=== PATIENT | male | born 1970 | race Caucasian/White ===

== ENCOUNTER 2020-12-11 09:16 | Outpatient (CLI) | payer MEDICAID, SELFPAY ==
--- NOTE | 2020-12-11 09:46 | DI.RAD_ITS ---
EXAM: XR KNEE LT 3V AP,LAT,NABIL CLINICAL HISTORY: KNEE JOINT PAIN, LT M25.562. TECHNIQUE: 2D digital imaging was performed. COMPARISON: No exams were available for comparison FINDINGS: BONES: No acute fracture is present. No bony destructive lesion is seen. JOINTS: The knee is normally aligned. No joint effusion is seen. SOFT TISSUE: Normal. IMPRESSION: Normal radiographs of the left knee. DATA REPOSITORY: RADIATION DOSE DELIVERED:
== END 2020-12-11 09:36 ==
PROVIDERS: PCP Physician Assistant; Visit Provider Physician Assistant
DX: M25.562 Pain in left knee (principal)
CPT/HCPCS: 73562

== ENCOUNTER 2020-12-11 11:56 | Outpatient (REF) | payer MEDICAID, SELFPAY ==
[2020-12-11 15:26] LABS: Anion Gap 11.8 mmol/L (3-11); BUN 24 mg/dL (7-18); CO2 27.2 mmol/L (21.0-32.0); Calcium 8.8 mg/dL (8.5-10.1); Calculated LDL 126 mg/dL (<100); Chloride 104 mmol/L (98-107); Cholesterol 189 mg/dL (<200); Glucose 95 mg/dL (74-106); HDL Cholesterol 45 mg/dL (40-60); Potassium 4.8 mmol/L (3.5-5.1); Sodium 143 mmol/L (136-145); Triglyceride 91 mg/dL (<150)
[2020-12-11 21:26] LABS: PSA, Screening 0.9 ng/mL (0.0-3.5)
== END 2020-12-11 11:57 | disposition home or self-care (01) ==
LOC: NCHCN 11:56
PROVIDERS: PCP Physician Assistant; Visit Provider Physician Assistant
DX: Z13.228 Encounter for screening for other metabolic disorders (principal); Z13.220 Encounter for screening for lipoid disorders; Z12.5 Encounter for screening for malignant neoplasm of prostate; Z00.00 Encounter for general adult medical examination without abnormal findings
CPT/HCPCS: 80048; 80061; 84153

== ENCOUNTER 2021-04-22 12:04 | Day surgery (SDC) | payer MEDICAID, SELFPAY ==
--- NOTE | 2021-04-22 07:05 | W.COLOREPORT ---
Date of service: 04/22/21 Time of Service: 13:49 Colonoscopy Report Date of procedure: 04/22/21 Pre-op diagnosis general: Colon Cancer Screening Post-op diagnosis procedure note: other (polyps) Procedure: Colonoscopy with polypectomy Surgeon: Candie Arroyo Anesthesia Type: MAC (ASA 2/ Deborah Rodriguez, SANTA) Estimated blood loss (mL): 3 Pathology: other (rectal polyps x3) Complications: None Disposition: same day Indications: The patient is here for Colonoscopy pre-op.He has no family history of colon cancer. He has not had any bowel habit changes. -Discussed colonoscopy bowel prep as well as the procedure. Discussed possible complications of the procedure to include bleeding, pain, perforation, missed small lesion/polyp, sore throat, aspiration and adverse reaction to the medications. Questions were answered to patient?s satisfaction. No guarantees were implied or given. Prep: Miralax/Dulcolax Procedure Start Time: 13:49 Procedure End Time: 14:12 Retraction Time: 15 minutes Findings: 3 polyps Procedure Description: After informed consent was obtained the patient was taken to the procedure room and placed in a left decubitous position. Monitors were applied and a time out was done. The patients name, date of , procedure, allergies to medications and metal in their body was reviewed. The patient was then sedated. Once sedated and comfortable a rectal exam was done. External exam was normal. Internal exam revealed a normal sphincter tone and no palpable masses. The prostate felt smooth. The scope was then introduced and retro-flexed. No internal hemorrhoids, polyps or masses were identified on retro-flexion. The scope was then advanced to the cecum without difficulty. The ileocecal vlave and appendiceal orifice were identified. The prep was adequate. The scope was then slowly retracted over 15 minutes back into the rectum. Polyps were removed with cold forceps in the rectum x3. There was no diverticulosis noted. The scope was removed and the patient was woken up and taken back to Same day surgery in stable condition. The patient tolerated the procedure well and there were no immediate complications. Follow up: The patient should follow up in 5 years unless they develop changes in bowel habits or other new gastrointestinal complaints.
--- NOTE | 2021-04-22 07:06 | W.PM.DSUDISC ---
Discharge Plan Disposition Patient Disposition: HOME Condition: Good Discharge Details Reason For Visit: Colon Cancer Screening Attending Provider: Candie Arroyo Primary Care Provider: Lloyd Jimenez Home Meds and New Rx's Prescriptions: Continued lansoprazole [Prevacid] 15 mg capsule,delayed release(DR/EC) 15 mg PO DAILY RF: 0 Discontinued bisacodyl [Dulcolax (bisacodyl)] 5 mg tablet,delayed release (DR/EC) 5 mg PO ONCE Qty: 4 RF: 0 polyethylene glycol 3350 17 gram/dose powder 238 g PO ONCE Qty: 238 RF: 0 Discharge Instructions Additional Instructions: Findings: 3 polyps Follow up: 5 years Please call if you develop: fevers >101.5 Nausea or Vomiting Abdominal pain that is not transient Rectal bleeding that is more then a tbsp A hard abdomen and inability to pass gas DAY SURGERY UNIT POST ENDOSCOPY INSTRUCTIONS Instructions for everyone who is given Anesthesia: For your safety, please do the following for the next 24 Hours: a. Do not drive or operate dangerous equipment b. Do not drink alcohol beverages or use any recreational drugs for the first 24 hours or while taking pain medications. The medications in your body may have a reaction that can be dangerous. c. Do not make any important decisions or sign any important papers 1. Generally there are no restrictions on your activity after a day or so has gone by, but you may feel a bit fatigued for a few days. 2. After you arrive home you may have a light meal and return to a normal diet as you can tolerate it without feeling sick to your stomach. 3. After surgery, you may feel pain or discomfort. This should be only transient, but if it persists please contact your doctor. 4. If there are any questions regarding the findings of your procedure, please feel free to contact your doctor. 6. If you are unable to contact your doctor with a problem, contact the hospital at [phone]. 7. Continue all your regular medications unless directed otherwise. I understand the above instructions and have no questions. Signature of Patient or Responsible Adult Escort Date/Time Name of Responsible Adult Escort Signature of Nurse Date/Time Activity:: Activity as Tolerated Diet:: As Tolerated Discharge Orders Discharge Orders: Discharge Order (Routine); Ordered 04/22/21 Ordered By: Candie Arroyo
[2021-04-22 12:21] VITALS: BP 132/88; PULSE 74; RESP 16; TEMP 36.4; O2SAT 99
[2021-04-22] MEDS: Lactated Ringers 1,000 ML 80 ML IV (12:35)
--- NOTE | 2021-04-22 12:51 | ANES.PREOP_ITS ---
General Info Date of Service Date Performed: 04/22/21 Height: 5 ft 10.08 in Weight: 90.4 kg Body Mass Index (BMI): 28.5 Surgical Procedure: Operation Date: 04/22/21 13:05 Proposed Procedures Side Surgeon p Colonoscopy Candie Arroyo MD Meds Allergies and Home Medications Allergies Allergy/AdvReac Type Severity Reaction Status Date / Time No Known Allergies Allergy Verified 04/22/21 12:20 Home Medication Medication Instructions Recorded lansoprazole 15 mg capsule,delayed 15 mg PO DAILY 12/12/20 release bisacodyl 5 mg tablet,delayed 5 mg PO ONCE #4 tab 04/05/21 release polyethylene glycol 3350 17 238 g PO ONCE #238 g 04/05/21 gram/dose oral powder Current Visit Medications: Current Medications Generic Name Dose Route Start Last Admin Trade Name Freq PRN Reason Stop Dose Admin Hyoscyamine Sulfate 0.125 mg 04/22/21 07:06 Hyoscyamine 0.125 Mg Sl/Oral/Chew SL DIRECTED PRN Ringer's Solution 1,000 mls @ 80 mls/hr 04/22/21 06:00 04/22/21 12:35 IV 05/19/21 23:59 80 mls/hr INFUSION GERARDO Administration IV Miscellaneous Supplies 1 each 04/22/21 06:00 Iv Access IV 05/19/21 23:59 DIRECTED GERARDO Ondansetron HCl 4 mg 04/22/21 07:06 Ondansetron 4 Mg/2 Ml Vial IVP Q4H PRN PRN Nausea / Vomiting Sodium Chloride 0 ml 04/22/21 06:00 Normal Saline Flush 10 Ml Syr IV 05/19/21 23:59 PRN PRN Sodium Chloride 0 ml 04/22/21 06:00 Normal Saline 10 Ml Vial IJ 05/19/21 23:59 DIRECTED PRN Sterile Water 0 ml 04/22/21 06:00 Water,Injection,Sterile 10 Ml Vial IJ 05/19/21 23:59 DIRECTED PRN PFSH Active Problems Active Problems: Problem Status Onset Code Screening for colon cancer Z12.11 Joint pain M25.50 GERD (gastroesophageal reflux disease) K21.9 Medical History Medical History Back pain GERD (gastroesophageal reflux disease) Knee pain, left Surgical History Surgical History History of appendectomy Tobacco Smoking/Tobacco Use Status: Never Alcohol Alcohol Intake: current Alcohol intake frequency: holidays/special occasions on ly Substance Use Substance use: Daily Substance use type: marijuana Details: Last use of marijuana was last night per patient. Vital Signs and Lab Results Vital Signs Most Recent Vital Signs in EMR: Most Recent Vital Signs Temp Pulse Resp BP Pulse Ox 36.4 C L 74 16 132/88 99 04/22/21 12:21 04/22/21 12:21 04/22/21 12:21 04/22/21 12:21 04/22/21 12:21 Lab Results Blood Type / Crossmatch: No Data to Display Complete Blood Count: No Data to Display Complete Metabolic Panel: No Data to Display Liver Function Panel: No Data to Display Coagulation Panel: No Data to Display Cardiac Panel: No Data to Display Arterial Blood Gas: No Data to Display Venous Blood Gas: No Data to Display Pancreas Panel: No Data to Display Thyroid Panel: No Data to Display Infectious Disease: No Data to Display Blood Cultures: No Data to Display Toxicology Panel: No Data to Display Anesthesia Assessment and Plan Anesthesia History Personal History: No History of Anesthesia Complications Family History: No Family History of Anesthesia Complications Exercise Tolerance Exercise Tolerance: Metabolic Equivalents>4 Pertinent Negatives Pertinent Negatives: No Symptoms of GERD (Well-controlled), No Major Cardiovascular Symptoms or Complaints, No Major Pulmonary Symptoms or Complaints and No History of CVA/TIA Cardiac & Pulmonary Exam Cardiac Exam: Normal S1/S2 Heart Sounds Pulmonary Exam: Clear Bilateral Breath Sounds Airway Exam Known Difficult Airway: No Mallampati Class: 2 Mouth Opening: Normal (> 3cm) Thyromental Distance: Greater than 3 cm Neck Range of Motion: Full ROM Neck Circumference: Normal Teeth Condition: Normal Dentition ASA Classification ASA Score: ASA 2 Emergency Case?: No NPO Status NPO Status: NPO Clears >2 hours, Solids >8 hours Anesthesia Plan Resuscitation Status: Full Code Anesthesia Technique: General Anesthesia Airway Planned: Natural Airway Monitors Used: Standard Monitors
[2021-04-22 12:52] VITALS: BMI 28.5
--- NOTE | 2021-04-22 14:09 | BOWEL_PTH ---
PATIENT: Anil Bonner LOC: [facility] U#:[id number] AGE/SX: 50/M ROOM: RE04/22/[address]: Candie Arroyo MD : 1970 BED: DIS: 04/22/2021 SPEC #: [id number] RECD: 04/22/21 17:22 STATUS: JOSELUIS REQ #: [id number] ROSE MARIE: 04/22/21 14:[address]: Candie Arroyo DEPT: Surgical Specimen RECD BY: Danna Darling ENTERED: 04/22/21 17:23 SP TYPE: Bowel OTHR DR: Lloyd Jimenez Tissues: 1 - BIOPSY BOWEL Procedures: GROSS AND MICRO LEVEL 4 Comments: [id number]
[2021-04-22 14:17] VITALS: BP 132/88; PULSE 74; RESP 14; TEMP 36.4; O2SAT 99
--- NOTE | 2021-04-22 14:29 | W.ANESPOSTOP ---
Postoperative Evaluation Date, Time and Location Date Performed: 04/22/21 Time Performed: 14:37 Patient Location: Day Surgery Unit Vital Signs Most Recent Imported Vital Signs: Most Recent Vital Signs Temp Pulse Resp BP Pulse Ox 36.4 C L 74 14 132/88 99 04/22/21 14:17 04/22/21 14:17 04/22/21 14:17 04/22/21 14:17 04/22/21 14:17 Pain Score Most Recent Pain Score: Most Recent Pain Score Pain Level 0 04/22/21 14:17 Assessment Mental Status: Awake (Alert & Oriented to Patient Baseline) Airway and Respiratory Function: Patent airway with normal (patient baseline) respiratory exam Cardiovascular Function: Hemodynamically Stable Hydration Status: Adequately Hydrated Nausea & Vomiting: No Nausea or Vomiting Pain: Pt. Denies Any Pain Peripheral Nerve Block: Patient did not receive a nerve block
[2021-04-22 14:49] VITALS: BP 123/80; PULSE 62; RESP 16; TEMP 36.4; O2SAT 100
== END 2021-04-22 15:00 | disposition home or self-care (01) ==
LOC: SUR 12:05
PROVIDERS: PCP Physician Assistant; Visit Provider Surgery
PROC: 0DJD8ZZ Inspection of Lower Intestinal Tract, Via Natural or Artificial Opening Endoscopic (ICD-10-PCS; CPT 45378; principal; 2021-04-22 13:00)
DX: Z12.11 Encounter for screening for malignant neoplasm of colon (principal); K62.1 Rectal polyp
CPT/HCPCS: 45380; 88305; J2001

== ENCOUNTER 2021-11-29 02:04 | Outpatient (CLI) | payer MEDICAID, SELFPAY ==
--- NOTE | 2021-11-29 13:58 | DI.RAD_ITS ---
Exam(s) XR CHEST 2V PA LATERAL EXAM: XR CHEST 2V PA LATERAL CLINICAL HISTORY: WHEEZING R06.02 LEFT UPPER LUNG FIELD. TECHNIQUE: 2D digital imaging was performed. COMPARISON: No exams were available for comparison FINDINGS: Heart size is normal. The mediastinum is not widened. Lungs are clear. No infiltrates nor pleural effusions. IMPRESSION: No acute pulmonary findings. DATA REPOSITORY: RADIATION DOSE DELIVERED:
== END 2021-11-29 02:24 ==
PROVIDERS: PCP Physician Assistant; Visit Provider Physician Assistant
DX: R06.2 Wheezing (principal)
CPT/HCPCS: 71046

== ENCOUNTER 2022-01-16 14:09 | Outpatient (REF) | payer MEDICAID, SELFPAY ==
--- NOTE | 2022-01-16 13:09 | SKI_PTH ---
PATIENT: Anil Bonner LOC: [facility]#:[id number] AGE/SX: 51/M ROOM: RE01/16/[address]: Lloyd Jimenez : 1970 BED: DIS: 01/16/2022 SPEC #: [id number] RECD: 01/16/22 17:01 STATUS: JOSELUIS SALINAS #: [id number] ROSE MARIE: 01/16/22 13:[address]: Lloyd Jimenez DEPT: Surgical Specimen RECD BY: Danna Darling Tissues: 1 - SKIN BIOPSY(SHAVE/PUNCH) Procedures: SKIN LEVEL 4 Comments: [id number]
== END 2022-01-16 14:10 | disposition home or self-care (01) ==
LOC: NCHCN 14:09
PROVIDERS: PCP Physician Assistant; Visit Provider Physician Assistant
DX: L82.1 Other seborrheic keratosis (principal); D23.5 Other benign neoplasm of skin of trunk
CPT/HCPCS: 88305

== ENCOUNTER 2024-01-12 08:58 | Outpatient (CLI) | payer MEDICAID, SELFPAY ==
[2024-01-12 09:10] LABS: Abs Immature Grans 0.03 10^3/uL (0.0-0.06); Absolute Basophil Count 0.06 10^3/uL (0.0-0.2); Absolute Eosinophil Count 0.16 10^3/uL (0.0-0.7); Absolute Lymphocyte Count 2.01 10^3/uL (1.2-3.4); Absolute Monocyte Count 0.62 10^3/uL (0.1-0.8); Absolute Neutrophil Count 4.97 10^3/uL (1.2-6.7); Basophils % 0.8; HCT 41.1 % (40.0-50.0); HGB 13.8 g/dL (13.5-17.5); Immature Grans % 0.4; Lymphocytes % 25.6; MCH 28.6 pg (27.0-33.0); MCHC 33.6 % (32.0-36.0); MCV 85 fL (80-95); MPV 10.9 fL (8.0-11.0); Monocytes % 7.9; Neutrophils % 63.3; Platelet Count 198 10^3/uL (130-400); RBC 4.83 10^6/uL (4.36-5.78); RDW-SD 40.5 fL; WBC 7.85 10^3/uL (4.4-10.8)
[2024-01-12 10:12] LABS: ALT 31 U/L (16-63); AST 18 U/L (15-37); Albumin 3.9 g/dL (3.4-5.0); Alkaline Phosphatase 56 U/L (46-116); BUN 16 mg/dL (7-18); Bilirubin, Total 0.4 mg/dL (0.2-1.0); CREATININE 1.1 mg/dL (0.70-1.30); Calcium 9.1 mg/dL (8.5-10.1); Calculated LDL 121 mg/dL (<100); Chloride 107 mmol/L (98-107); Cholesterol 185 mg/dL (<200); Estimated GFR 79.77 (mL/min/1.73m2); Glucose 100 mg/dL (74-106); HDL Cholesterol 55 mg/dL (40-60); Potassium 4.8 mmol/L (3.5-5.1); Sodium 146 mmol/L (136-145); Triglyceride 48 mg/dL (<150)
[2024-01-12 17:57] LABS: PSA, Screening 0.7 ng/mL (<=3.5)
== END 2024-01-12 08:59 | disposition home or self-care (01) ==
LOC: LBO 08:58
PROVIDERS: PCP Physician Assistant; Visit Provider Physician Assistant
DX: Z00.00 Encounter for general adult medical examination without abnormal findings (principal)
CPT/HCPCS: 36415; 80053; 80061; 84153; 85025

== ENCOUNTER 2024-05-11 00:53 | Outpatient (CLI) | payer MEDICAID, SELFPAY ==
--- NOTE | 2024-05-11 10:00 | DI.MRI_ITS ---
Exam(s) MR LOWER JOINT LT WO EXAM: MR LOWER JOINT LT WO CLINICAL HISTORY: M25.562 Pain left knee, chronic, swelling, giving out. TECHNIQUE: Multiplanar multisequence MRI was performed. COMPARISON: CR XR KNEE LT 3V AP,LAT,NABIL from 12/11/2020 FINDINGS: BONES: There is no fracture or contusion pattern. JOINTS: There is hyperintense signal seen in the articular cartilage overlying the patella. There is a small amount of fluid in the joint space. TENDONS: Extensor mechanism: Unremarkable. Medial retinaculum: Unremarkable. Lateral retinaculum: Unremarkable. Popliteus: Unremarkable. MUSCLES: Unremarkable. MENISCI: There is a complex tear of the body of the medial meniscus. There also is seen a tear of th e posterior horn of the medial meniscus. The lateral meniscus is unremarkable. SOFT TISSUES: There is a tiny popliteal cyst. LIGAMENTS: Anterior Cruciate: Unremarkable. Posterior Cruciate: Unremarkable. Medial Collateral:Unremarkable. Lateral Collateral: Unremarkable. OTHER: IMPRESSION: 1. Medial meniscal tear involving the body and posterior horn. 2. No evidence of a ligament tear. 3. Chondromalacia of the patella. 4. Small amount of fluid in the joint space. DATA REPOSITORY:
== END 2024-05-11 01:13 ==
LOC: DI 00:53
PROVIDERS: PCP Physician Assistant; Visit Provider Physician Assistant
DX: M23.222 Derangement of posterior horn of medial meniscus due to old tear or injury, left knee (principal)
CPT/HCPCS: 73721

== ENCOUNTER 2024-06-01 15:14 | Outpatient (CLI) | payer MEDICAID, SELFPAY ==
--- NOTE | 2024-06-01 13:15 | DI.RAD_ITS ---
Exam(s) XR KNEE LT 2V AP,LAT EXAM: XR KNEE LT 2V AP,LAT CLINICAL HISTORY: evaluate left knee. TECHNIQUE: 2D digital imaging was performed. Three views. COMPARISON: CR XR KNEE LT 3V AP,LAT,NABIL from 12/11/2020 FINDINGS: BONES: No acute fracture is present. No bony destructive lesion is seen. Mild spurring at tibial t ubercle. Mild spurring at articular aspect of patella. JOINTS: The knee is normally aligned. Small to moderate-sized joint effusion is seen. SOFT TISSUE: Normal. IMPRESSION: Mild degenerative changes and joint effusion. DATA REPOSITORY: RADIATION DOSE DELIVERED:
== END 2024-06-01 15:15 | disposition home or self-care (01) ==
LOC: DIORS 15:14
PROVIDERS: PCP Physician Assistant; Visit Provider Student in an Organized Health Care Education/Training Program
DX: M17.12 Unilateral primary osteoarthritis, left knee (principal)
CPT/HCPCS: 73560

== ENCOUNTER 2024-06-24 10:24 | Day surgery (SDC) | payer MEDICAID, SELFPAY ==
[2024-06-24] VITALS (26 sets, daily range): BP systolic 100–140; BP diastolic 68–95; PULSE 50–189; RESP 12–23; TEMP 36–36.3; O2SAT 94–100; BMI 26.3
--- NOTE | 2024-06-24 07:26 | W.PM.OP ---
Date of service: 06/24/24 Time of Service: 15:00 Operative Note Operative Note DATE OF PROCEDURE: 06/24/24 PRE-OP DIAGNOSIS: Left knee 1. Medial meniscus tear 2. Chondromalacia POST-OP DIAGNOSIS: same Left knee 1. Medial meniscus tear 2. Chondromalacia 3. Lateral meniscus tear 4. Loose bodies PROCEDURE: Left knee 1. Partial medial & lateral meniscectomy, CPT #85584 2. Extensive debridement, CPT #55328: Resection medial gutter plica, removal of suprapatellar loose bodies, debridement intercondylar osteophytes, and debridement anterior synovitis 3. Chondroplasty, CPT #33857: Trochlea and patella SURGEON: Alexander Bravo HELICOPTER OFFICER: None None ANESTHESIA TYPE: Local By Surgeon and General LMA/ETT Refer to Anesthesia Record ESTIMATED BLOOD LOSS: 5 PATHOLOGY: none sent TOURNIQUET TIME: 0 Patient was transported to: PACU Patient's condition: stable Indications: Please see complete medical record for details. Findings: Exam under anesthesia: Mild stiffness with a few degrees short of full extension, full extension with downward pressure, no instability Arthroscopic findings: Moderately significant degenerative findings throughout the knee. Moderately significant central trochlear and patellar chondromalacia. Obvious large medial gutter plical band. Multiple small ovoid loose bodies probably cartilaginous. Intact ACL. Early intercondylar marginal osteophytes. Large degenerative medial meniscus tear from the body posterior horn junction extending into the body and posterior horn through the red-white zones. Moderate medial compartment narrowing chondromalacia. Large posterior horn somewhat vertical meniscus tear at about the read to red-white zone. Mild lateral chondromalacia. Procedure Description: In the operating room, general anesthesia was induced. The patient was positioned supine on the operating room table. All bony prominences were well-padded. Preoperative antibiotics were administered. The knee was prepped and draped in the usual sterile fashion. The correct patient, procedure, and side of the procedure were all verified prior to incision. Exam under anesthesia was performed. 10 cc of 0.25% bupivacaine containing epinephrine was infiltrated about the planned anteromedial and anterolateral knee arthroscopy portals. The portals were established and a complete diagnostic arthroscopy was performed with relevant findings detailed above. The mechanical shaver was used to resect a large medial gutter plical band. Suprapatellar space was debrided of synovitis and a few small ovoid cartilaginous loose bodies were removed. The torpedo shaver was then used to debride irregular cartilage margins through the central trochlea and undersurface patella to more stable smooth and appropriate margin. Mechanical shaver was then used to debride anterior synovitis and takedown some early impinging intercondylar osteophytes. Lateral meniscus tear was then probed and unfortunately was full-thickness in a somewhat vertical to horizontal trajectory in the center of the posterior horn to about the capsular peripheral margin. Given the degenerative nature of the knee, no repair was really indicated although meniscectomy then did have to involve the white and red-white zones fairly significantly about the posterior horn tear. Hand biters and torpedo shaver was used to contour the meniscus remnant as best possible while trying to preserve meniscal tissue with the remainder root and body of the lateral meniscus largely okay. Lastly using the combination of hand instruments meniscal biters and power torpedo shaver the medial meniscus tear was thoroughly debrided and contoured to a stable margin taking care to ensure stable root posterior horn and anterior remnants while preserving meniscus as possible although the central part of the tear was mucoid and degenerated requiring debridement towards the red capsular zone. Under direct arthroscopic visualization an 18-gauge needle was passed into the knee from superolateral into the suprapatellar pouch. The knee was copiously irrigated with arthroscopic fluid until there was a clear effluent before being drained of all fluid. The anteromedial and anterolateral portals were closed in 3-0 Monocryl in a buried interrupted fashion. 20 cc of 0.25% bupivacaine with epinephrine containing 4 mg of morphine was infiltrated into the knee through the previously placed needle. Mastisol, Steri-Strips, and 4 x 4 gauze were applied over the incisions. The knee was then wrapped gently with an VELIA comressive bandage. The patient awoke from anesthesia without complication and was transferred to the recovery room in a stable condition.
--- NOTE | 2024-06-24 10:23 | W.PM.DSUDISC ---
Date of service: 06/24/24 Time of Service: 15:00 Discharge Plan Disposition Patient Disposition: Home Condition: Stable Discharge Details Attending Provider: Alexander Bravo Primary Care Provider: Lloyd Jimenez Home Meds and New Rx's Prescriptions: New naproxen 250 mg tablet 250 - 500 mg PO BID PRN (Reason: moderate pain and swelling) Qty: 40 0RF oxycodone 5 mg tablet 5 - 10 mg PO .q4-6h MDD 30 mg PRN (Reason: severe pain) Qty: 18 0RF aspirin 81 mg capsule 81 mg PO DAILY 14 Days Qty: 14 0RF Continued lansoprazole [Prevacid] 15 mg capsule,delayed release(DR/EC) 15 mg PO DAILY Discharge Instructions Additional Instructions: Surgery: Left knee arthroscopy with partial medial & lateral meniscectomy, patellofemoral chondroplasty, medial plica excision, and removal of loose bodies Activity: Weightbearing as tolerated. Advance range of motion as comfort allows. No knee brace or crutches needed as soon as comfortable. Recommend avoiding sports, pivoting, and squatting for 6-8 weeks. A physical therapy prescription will be sent electronically to start in 2 to 3 weeks. Prescriptions: Aspirin 81 mg take 1 daily to prevent a blood clot for 14 days, starting tomorrow Naproxen 250 mg take 1-2 every 12 hours with a meal as needed for moderate pain Oxycodone 5 mg take 1-2 every 4-6 hours as needed for severe pain You may use [id number] Tylenol (acetaminophen) as needed for mild pain. These pain medications may be taken all at once or in different combinations as needed. Also, recommend Colace (docusate) as a stool softener as surgery and pain medicine cause constipation. You may try [id number]-dan-ahfrdle diphenhydramine (Benadryl) 25-50 mg nightly as a sleep aid Dressings: Leave dressing in place for 3 days. May then remove and leave open to air or cover incisions with Band-Aids. Leave the sticky Steri-Strips in place until they fall off or remove them after you shower. May shower after 5 days. Follow-up: 10-[address] Bravo You may take off the leg compression stockings this evening at home. You may also leave them on a few days longer if you have a history of leg swelling or edema. Let us know right away if you develop any redness, drainage, fevers, chest pain, or trouble breathing. Do not drink alcohol or drive for at least 24 hours after anesthesia. Please call the office during business hours with any questions or concerns. Stand Alone Forms: Anesthesia Discharge Inst.Amarjit (DSU) Discharge Orders Discharge Orders: Discharge Order (Routine); Ordered 06/24/24 Ordered By: Wandy Grover DS: Diagnosis Discharge Diagnosis (1) Degenerative tear of left medial meniscus: Status: Acute (2) Chondromalacia of left knee: Status: Acute (3) Tear of lateral meniscus of left knee: Status: Acute (4) Loose body of left knee: Status: Acute
[2024-06-24] MEDS: Lactated Ringers 1,000 ML 30 ML IV (11:08)
--- NOTE | 2024-06-24 11:54 | W.ANESPRE ---
General Info Date of Service Date Performed: 06/24/24 Height: 5 ft 10 in Weight: 83.2 kg Body Mass Index (BMI): 26.3 Surgical Procedure: Operation Date: 06/24/24 12:10 Proposed Procedure Side Surgeon p Knee Arthroscopy Left Alexander Bravo MD Actual Procedure Side Surgeon p Knee Arthroscopy Left Alexander Bravo MD Pre-Op Diagnosis Post-Op Diagnosis (1) Chondromalacia of left knee: (2) Degenerative tear of left medial meniscus: Meds Allergies and Home Medications Allergies Allergy/AdvReac Type Severity Reaction Status Date / Time No Known Allergies Allergy Verified 06/24/24 10:42 Home Medication ?Medication ?Instructions ?Recorded lansoprazole 15 mg capsule,delayed 15 mg PO DAILY 12/12/20 release (Prevacid) Current Visit Medications: Current Medications Generic Name Dose Route Start Last Admin Trade Name Freq PRN Reason Stop Dose Admin Ringer's Solution 1,000 mls @ 30 mls/hr 06/24/24 06:00 06/24/24 11:08 IV 07/23/24 23:59 30 mls/hr INFUSION GERARDO Administration Cefazolin Sodium/Dextrose 2 gm in 50 mls @ 100 mls/hr 06/24/24 06:00 Ancef Duplex IVPB 06/24/24 16:00 PREOP GERARDO Tranexamic Acid/Sodium Chloride 1,000 mg in 100 mls @ 600 mls/hr 06/24/24 06:00 IVPB 06/24/24 16:00 PREOP GERARDO IV Miscellaneous Supplies 1 each 06/24/24 06:00 Iv Access IV 07/23/24 23:59 DIRECTED GERARDO Oxycodone HCl 0 mg 06/24/24 10:23 Oxycodone 5 Mg Tab PO 07/24/24 10:22 Q3H PRN PRN Pain Sodium Chloride 0 ml 06/24/24 06:00 Normal Saline Flush 10 Ml Syr IV 07/23/24 23:59 PRN PRN Sodium Chloride 0 ml 06/24/24 06:00 Normal Saline 10 Ml Vial IJ 07/23/24 23:59 DIRECTED PRN Sterile Water 0 ml 06/24/24 06:00 Water,Injection,Sterile 10 Ml Vial IJ 07/23/24 23:59 DIRECTED PRN PFSH Active Problems Active Problems: Problem Status Onset Code Degenerative tear of left medial meniscus Acute M23.204 Chondromalacia of left knee Acute M94.262 Colon polyp, hyperplastic Acute ~04/2021 K63.5 Screening for colon cancer Acute Z12.11 Joint pain Acute M25.50 GERD (gastroesophageal reflux disease) Chronic K21.9 Medical History Medical History Adjustment disorder GERD (gastroesophageal reflux disease) Knee pain, left Back pain Surgical History Surgical History H/O vasectomy History of colonoscopy (~04/2021) History of appendectomy Tobacco Smoking/Tobacco Use Status: Never Alcohol Alcohol Intake: current Alcohol intake frequency: holidays/special occasions only Substance Use Substance use: Occasionally Substance use type: marijuana Details: last THC 06/23/24 at 2000 Vital Signs and Lab Results Vital Signs Most Recent Vital Signs in EMR: Most Recent Vital Signs Temp Pulse Resp BP Pulse Ox 36.2 C L 62 16 120/74 100 06/24/24 10:35 06/24/24 10:35 06/24/24 10:35 06/24/24 10:35 06/24/24 10:35 Lab Results Blood Type / Crossmatch: No Data to Display Complete Blood Count: No Data to Display Complete Metabolic Panel: No Data to Display Liver Function Panel: No Data to Display Coagulation Panel: No Data to Display Cardiac Panel: No Data to Display Arterial Blood Gas: No Data to Display Venous Blood Gas: No Data to Display Pancreas Panel: No Data to Display Thyroid Panel: No Data to Display Infectious Disease: No Data to Display Blood Cultures: No Data to Display Toxicology Panel: No Data to Display Anesthesia Assessment and Plan Anesthesia History Personal History: No History of Anesthesia Complications Family History: No Family History of Anesthesia Complications Exercise Tolerance Exercise Tolerance: Metabolic Equivalents>4 Pertinent Negatives Pertinent Negatives: No Symptoms of GERD Cardiac & Pulmonary Exam Cardiac Exam: Normal S1/S2 Heart Sounds Pulmonary Exam: Clear Bilateral Breath Sounds Implantable Cardiac Device Does patient have a Pacemaker or an ICD?: No Airway Exam Known Difficult Airway: No Mallampati Class: 2 Mouth Opening: Normal (> 3cm) Thyromental Distance: Greater than 3 cm Neck Range of Motion: Full ROM Neck Circumference: Normal Teeth Condition: Normal Dentition ASA Classification ASA Score: ASA 2 Emergency Case?: No NPO Status NPO Status: NPO Clears >2 hours, Solids >8 hours Anesthesia Plan Resuscitation Status: Full Code Anesthesia Technique: General Anesthesia Airway Planned: LMA Monitors Used: Standard Monitors
[2024-06-24] MEDS: ceFAZolin 2 GM/50 ML BAG IVPB (14:08)
[2024-06-24] MEDS: TRANEXAMIC ACID/SOD. CHL. 1,000 MG/100 ML BAG 600 MG IVPB (14:16)
[2024-06-24] MEDS: Bupivacaine 0.25% Pres-Free W/EPI 30 ML VIAL (14:32)
[2024-06-24] MEDS: EPINEPHrine 10 MG/10 ML ML (14:53)
[2024-06-24] MEDS: MORPHine 4 MG/ML SYR (14:53)
--- NOTE | 2024-06-24 15:20 | W.ANESPOSTOP ---
Postoperative Evaluation Date, Time and Location Date Performed: 06/24/24 Time Performed: 15:20 Patient Location: PACU Vital Signs Most Recent Imported Vital Signs: Most Recent Vital Signs Temp Pulse Resp BP Pulse Ox 36.2 C L 62 16 120/74 100 06/24/24 10:35 06/24/24 10:35 06/24/24 10:35 06/24/24 10:35 06/24/24 10:35 Pain Score Most Recent Pain Score: Most Recent Pain Score Pain Level 0 06/24/24 10:35 Assessment Mental Status: Arousable with meaningful communication Airway and Respiratory Function: Patent airway with normal (patient baseline) respiratory exam Cardiovascular Function: Hemodynamically Stable Hydration Status: Adequately Hydrated Nausea & Vomiting: No Nausea or Vomiting Pain: Pain is tolerable per patient Peripheral Nerve Block: Patient did not receive a nerve block
[2024-06-24] MEDS: ACETAMINOPHEN 1,000 MG/100 ML BTL 400 MG IVPB (15:24)
[2024-06-24] MEDS: fentaNYL 100 MCG/2 ML VIAL IVP ×2 (15:34→15:40)
[2024-06-24] MEDS: oxyCODONE 5 MG TAB PO (16:16)
== END 2024-06-24 17:12 | disposition home or self-care (01) ==
LOC: SUR 10:24
PROVIDERS: PCP Physician Assistant; Visit Provider Student in an Organized Health Care Education/Training Program
PROC: (CPT 29870; principal; 2024-06-24 12:00)
DX: M23.204 Derangement of unspecified medial meniscus due to old tear or injury, left knee (principal); M94.262 Chondromalacia, left knee; M23.42 Loose body in knee, left knee
CPT/HCPCS: 29880; 29876; J0131; J0690; J1100; J1885; J2003; J2270; J2405; J2704; J3010